=== PATIENT | female | born 1950 | race Two or more races ===

== ENCOUNTER 2021-02-27 18:16 | Inpatient (IN) | payer MEDICARE, MEDICAID ==
[~2021-02-27] VITALS: Ht 165.1 cm; Wt 77.1 kg
[2021-02-27] MEDS ORDERED: ONDANSETRON HCL 4 MG/2 ML VIAL IV ONE (18:30)
[2021-02-27] MEDS ORDERED: cefTRIAXone 1GM/50ML D5W 50 ML IV ONE ×2 (18:30→21:30)
[2021-02-27] MEDS ORDERED: SODIUM CHLORIDE 0.9% 1,000 ML IVB ONE (18:30)
[2021-02-27] MEDS ORDERED: KETOROLAC TROMETH 30 MG/ML 1ML VIAL IV ONE (18:30)
[2021-02-27 19:13] LABS: Basophils # (auto) 0 10 ^3/uL (0-0.2); Eosinophils # (auto) 0.1 10 ^3/uL (0-0.8); Monocytes # (auto) 0.2 10 ^3/uL (0-1.3); Nucleated Red Blood Cells % 0.2 %; White Blood Cell 2.9 10^3/uL (4.4-10.8)
[2021-02-27 19:15] LABS: Basophils % (auto) 0.6 % (0.0-2.0); Eosinophils % (auto) 1.9 % (0.0-7.0); Hematocrit 38.2 % (36.0-46.0); Hemoglobin 12.4 g/dL (12.2-16.2); Lymphocytes # (auto) 0.8 10 ^3/uL (0.4-5.4); Lymphocytes % (auto) 28.2 % (10.0-50.0); Mean Corpuscular Hemoglobin 35.4 pg (28.0-32.0); Mean Corpuscular Hgb Conc. 32.6 g/dL (32.0-36.0); Mean Corpuscular Volume 108.8 fL (80.0-100.0); Monocytes % (auto) 5.3 % (0.0-12.0); Neutrophils # (auto) 1.9 10 ^3/uL (1.6-8.6); Platelet Count (auto) 85 10^3/uL (140-450); Red Blood Cells 3.52 10^6/uL (4.0-5.20); Red Cell Distribution Width 19.8 % (11.8-14.3)
[2021-02-27 19:31] LABS: Albumin 3.9 g/dL (3.4-5.0); Anion Gap 6 (5-15); Blood Urea Nitrogen 15 mg/dL (7-18); Calcium 8.6 mg/dL (8.5-10.1); Carbon Dioxide 29 mmol/L (21-32); Chloride 110 mmol/L (98-107); Glucose 155 mg/dL (74-106); Lipase 246 U/L (73-393); Potassium 3.7 mmol/L (3.5-5.1); Sodium 145 mmol/L (136-145)
[2021-02-27 19:33] LABS: INR 1.11 (0.9-1.15); Partial Thromboplastin Time 26.2 sec (23.0-31.2)
[2021-02-27 19:39] LABS: Alanine Aminotransferase 46 U/L (13-56); Alkaline Phosphatase 295 U/L (45-117); Amylase 109 U/L (25-115); Aspartate Aminotransferase 53 U/L (15-37); BUN/Creatinine Ratio 19.7; Bilirubin, Total 2.4 mg/dL (0.2-1.0); GFR African American 97 mL/min; GFR Non-African American 80 mL/min; Total Protein 6.2 g/dL (6.4-8.2)
[2021-02-27] MEDS ORDERED: IOHEXOL 350 MG/ML 100ML IJ ONE (19:49)
[2021-02-27] MEDS ORDERED: SPIRONOLACTONE 25 MG TAB PO ONE (21:15)
[2021-02-27] MEDS ORDERED: FUROSEMIDE 40 MG/4 ML VIAL IV ONE (21:15)
[2021-02-27] MEDS ORDERED: AZITHROMYCIN 500MG/ 250ML 250 ML IV ONE (21:30)
[2021-02-27] MEDS ORDERED: DexAMETHasone SOD PHOS 10MG/1ML VIAL INJ IV ONE (21:30)
[2021-02-27] MEDS ORDERED: ONDANSETRON HCL 4 MG/2 ML VIAL IV PRN (23:15)
[2021-02-28] VITALS (7 sets, daily range): BP systolic 115–156; BP diastolic 54–75
[2021-02-28 08:44] LABS: Basophils # (auto) 0 10 ^3/uL (0-0.2); Basophils % (auto) 0.3 % (0.0-2.0); Eosinophils # (auto) 0 10 ^3/uL (0-0.8); Hemoglobin 12.2 g/dL (12.2-16.2); Lymphocytes # (auto) 0.5 10 ^3/uL (0.4-5.4); Monocytes # (auto) 0.1 10 ^3/uL (0-1.3); White Blood Cell 3.3 10^3/uL (4.4-10.8)
[2021-02-28 08:46] LABS: Eosinophils % (auto) 0.2 % (0.0-7.0); Hematocrit 36.9 % (36.0-46.0); Lymphocytes % (auto) 14.8 % (10.0-50.0); Mean Corpuscular Hemoglobin 35.4 pg (28.0-32.0); Mean Corpuscular Hgb Conc. 32.9 g/dL (32.0-36.0); Mean Corpuscular Volume 107.6 fL (80.0-100.0); Monocytes % (auto) 1.8 % (0.0-12.0); Neutrophils # (auto) 2.8 10 ^3/uL (1.6-8.6); Neutrophils % (auto) 82.9 % (37.0-80.0); Platelet Count (auto) 87 10^3/uL (140-450); Red Blood Cells 3.43 10^6/uL (4.0-5.20)
[2021-02-28 09:01] LABS: Albumin 3.8 g/dL (3.4-5.0); BUN/Creatinine Ratio 18.9; Calcium 8.6 mg/dL (8.5-10.1); Potassium 4.4 mmol/L (3.5-5.1)
[2021-02-28 09:10] LABS: Bilirubin, Total 1.8 mg/dL (0.2-1.0); Total Protein 6.3 g/dL (6.4-8.2)
[2021-02-28] MEDS: FAMOTIDINE 20 MG TAB PO SCH ×2 (09:36→22:02)
[2021-02-28] MEDS: SPIRONOLACTONE 25 MG TAB PO SCH (09:36)
[2021-02-28] MEDS ORDERED: cefTRIAXone 1GM/50ML D5W 50 ML IV ONE (10:45)
[2021-02-28] MEDS: LACTULOSE 20Gm/30ML SOLN PO SCH ×4 (13:36→22:02)
[2021-02-28] MEDS: AZITHROMYCIN 500MG/ 250ML 250 ML IV SCH (22:01)
[2021-02-28] MEDS: rifAXIMin 550 MG TAB PO SCH (22:02)
[2021-03-01] MEDS: LACTULOSE 20Gm/30ML SOLN PO SCH ×6 (02:00→21:08)
[2021-03-01 05:12] VITALS: BP 119/57
[2021-03-01 07:35] LABS: % Iron Saturation 20.4 % (15-50)
[2021-03-01 08:45] VITALS: BP 113/57
[2021-03-01] MEDS: cefTRIAXone 1GM/50ML D5W 50 ML IV SCH (10:42)
[2021-03-01] MEDS: FUROSEMIDE 40 MG/4 ML VIAL IV SCH (10:42)
[2021-03-01] MEDS: FAMOTIDINE 20 MG TAB PO SCH ×2 (10:43→21:08)
[2021-03-01] MEDS: SPIRONOLACTONE 25 MG TAB PO SCH (10:43)
[2021-03-01] MEDS: rifAXIMin 550 MG TAB PO SCH ×2 (10:43→21:08)
[2021-03-01 13:00] VITALS: BP_SYST 121; BP_SYST 134; BP_DIAS 52; BP_DIAS 67
[2021-03-01] MEDS: traMADol HCL 50 MG TAB PO PRN (16:32)
[2021-03-01 17:00] VITALS: BP 106/51
[2021-03-01] MEDS ORDERED: ALEN70TA74 PO (18:52)
[2021-03-01] MEDS: AZITHROMYCIN 500MG/ 250ML 250 ML IV SCH (21:07)
[2021-03-01] MEDS: ALBUTEROL SULF 2.5 MG/0.5ML(0.5%) NEB SOLN NEB PRN (22:19)
[2021-03-01 22:48] VITALS: BP 119/73
[2021-03-02] MEDS: LACTULOSE 20Gm/30ML SOLN PO SCH ×6 (02:00→20:40)
[2021-03-02 05:21] VITALS: BP 122/28
[2021-03-02 06:18] LABS: Potassium 4.6 mmol/L (3.5-5.1)
[2021-03-02 06:26] LABS: Albumin 3.8 g/dL (3.4-5.0); BUN/Creatinine Ratio 26.7; Bilirubin, Total 1.7 mg/dL (0.2-1.0); Calcium 8.3 mg/dL (8.5-10.1); Total Protein 5.9 g/dL (6.4-8.2)
[2021-03-02] MEDS: cefTRIAXone 1GM/50ML D5W 50 ML IV SCH (08:21)
[2021-03-02] MEDS: traMADol HCL 50 MG TAB PO PRN (08:22)
[2021-03-02 09:00] VITALS: BP 127/50
[2021-03-02] MEDS: ALBUTEROL SULF 2.5 MG/0.5ML(0.5%) NEB SOLN NEB PRN (09:22)
[2021-03-02] MEDS: SPIRONOLACTONE 25 MG TAB PO SCH (09:23)
[2021-03-02] MEDS: rifAXIMin 550 MG TAB PO SCH ×2 (09:23→20:43)
[2021-03-02] MEDS: FAMOTIDINE 20 MG TAB PO SCH ×2 (09:23→20:41)
[2021-03-02] MEDS: FUROSEMIDE 40 MG/4 ML VIAL IV SCH (09:23)
[2021-03-02 11:16] LABS: Hepatitis B Surface Antibody Negative
[2021-03-02 11:52] LABS: Hepatitis A Total Antibody Positive
[2021-03-02 12:17] LABS: Hepatitis B Core Total AB Negative; Hepatitis B Surface Antigen Negative (Negative); Hepatitis C Antibody Negative (Negative)
[2021-03-02 12:50] VITALS: BP 110/51
[2021-03-02 16:48] VITALS: BP 127/46
[2021-03-02] MEDS: AZITHROMYCIN 500MG/ 250ML 250 ML IV SCH (20:40)
[2021-03-02 22:00] VITALS: BP 140/66
[2021-03-03 01:21] VITALS: BP 140/66
[2021-03-03] MEDS: LACTULOSE 20Gm/30ML SOLN PO SCH ×6 (02:00→21:01)
[2021-03-03 05:00] VITALS: BP 123/62
[2021-03-03] MEDS ORDERED: LEVO50TA7 PO (07:26)
[2021-03-03 09:00] VITALS: BP 126/72
[2021-03-03] MEDS: cefTRIAXone 1GM/50ML D5W 50 ML IV SCH (09:11)
[2021-03-03] MEDS: FAMOTIDINE 20 MG TAB PO SCH ×2 (09:11→21:02)
[2021-03-03] MEDS: rifAXIMin 550 MG TAB PO SCH ×2 (09:11→21:05)
[2021-03-03] MEDS: FUROSEMIDE 20 MG TAB PO SCH (09:12)
[2021-03-03] MEDS: SPIRONOLACTONE 25 MG TAB PO SCH (09:12)
[2021-03-03] MEDS: traMADol HCL 50 MG TAB PO PRN (09:12)
[2021-03-03 13:00] VITALS: BP 132/73
[2021-03-03 17:00] VITALS: BP 140/60
[2021-03-03] MEDS: AZITHROMYCIN 500MG/ 250ML 250 ML IV SCH (21:00)
[2021-03-03 22:00] VITALS: BP 125/58
[2021-03-04] MEDS: LACTULOSE 20Gm/30ML SOLN PO SCH ×3 (02:00→08:53)
[2021-03-04 05:00] VITALS: BP 131/45
[2021-03-04] MEDS: cefTRIAXone 1GM/50ML D5W 50 ML IV SCH (08:52)
[2021-03-04] MEDS: rifAXIMin 550 MG TAB PO SCH (08:53)
[2021-03-04] MEDS: FUROSEMIDE 20 MG TAB PO SCH (08:53)
[2021-03-04] MEDS: FAMOTIDINE 20 MG TAB PO SCH (08:54)
[2021-03-04] MEDS: SPIRONOLACTONE 25 MG TAB PO SCH (08:54)
[2021-03-04 09:00] VITALS: BP 135/62
[2021-03-04 11:21] VITALS: BP 135/62
== END 2021-03-04 13:00 | disposition home health service (06) | DRG 871 ==
LOC: ER 18:16 → TELE 23:08 → WEST WING 02-28 03:51
PROVIDERS: ADMIT Nurse Practitioner; ATTEND Family Medicine
DX: A41.9 Sepsis, unspecified organism (principal); J18.9 Pneumonia, unspecified organism; J96.01 Acute respiratory failure with hypoxia; D61.818 Other pancytopenia; R18.8 Other ascites; K76.6 Portal hypertension; J98.11 Atelectasis; J90 Pleural effusion, not elsewhere classified; E72.20 Disorder of urea cycle metabolism, unspecified; K74.60 Unspecified cirrhosis of liver; R16.1 Splenomegaly, not elsewhere classified; K76.0 Fatty (change of) liver, not elsewhere classified; Z20.822 Contact with and (suspected) exposure to COVID-19; K57.30 Diverticulosis of large intestine without perforation or abscess without bleeding; Z79.899 Other long term (current) drug therapy; Z86.19 Personal history of other infectious and parasitic diseases
CPT/HCPCS: 36415; 36600; 71045; 71260; 74177; 76604; 76700; 80053; 80320; 82140; 82150; 82728; 82805; 83540; 83550; 83605; 83690; 84484; 85025; 85610; 85730; 86038; 86141; 86704; 86706; 86708; 86803; 86850; 86900; 86901; 87040; 87340; 87426; 93005; 94640; 96365; 96367; 96375; 99291; G0378; J0696; J1100; J1885; J2405

== ENCOUNTER 2021-04-12 07:28 | Inpatient (IN) | payer MEDICARE, MEDICAID ==
[~2021-04-12] VITALS: Ht 160 cm; Wt 70.9 kg
[~2021-04-12 07:28] MED LIST: ALEN70TA74 PO; LEVO50TA7 PO
[2021-04-12 08:11] LABS: Basophils # (auto) 0 10 ^3/uL (0-0.2); Eosinophils # (auto) 0.1 10 ^3/uL (0-0.8); Hemoglobin 11.1 g/dL (12.2-16.2); Lymphocytes # (auto) 1.2 10 ^3/uL (0.4-5.4); Monocytes # (auto) 0.1 10 ^3/uL (0-1.3); Nucleated Red Blood Cells % 0.2 %; Red Blood Cells 3.02 10^6/uL (4.0-5.20)
[2021-04-12 08:13] LABS: Basophils % (auto) 0.8 % (0.0-2.0); Lymphocytes % (auto) 41.1 % (10.0-50.0); Mean Corpuscular Hemoglobin 36.7 pg (28.0-32.0); Mean Corpuscular Hgb Conc. 33.7 g/dL (32.0-36.0); Monocytes % (auto) 3.6 % (0.0-12.0); Neutrophils # (auto) 1.4 10 ^3/uL (1.6-8.6); Neutrophils % (auto) 49.5 % (37.0-80.0); Red Cell Distribution Width 18.9 % (11.8-14.3); White Blood Cell 2.9 10^3/uL (4.4-10.8)
[2021-04-12] MEDS ORDERED: FAMO20TA10 PO (08:24)
[2021-04-12 08:29] LABS: Albumin 3.3 g/dL (3.4-5.0); Anion Gap 5 (5-15); Blood Urea Nitrogen 14 mg/dL (7-18); Calcium 8.4 mg/dL (8.5-10.1); Carbon Dioxide 30 mmol/L (21-32); Chloride 112 mmol/L (98-107); Glucose 94 mg/dL (74-106); Potassium 3.7 mmol/L (3.5-5.1); Sodium 147 mmol/L (136-145)
[2021-04-12 08:32] LABS: Alanine Aminotransferase 107 U/L (13-56); Aspartate Aminotransferase 136 U/L (15-37); BUN/Creatinine Ratio 22.2; GFR African American 120 mL/min; GFR Non-African American 99 mL/min
[2021-04-12 08:36] LABS: Alkaline Phosphatase 581 U/L (45-117); Bilirubin, Total 1.5 mg/dL (0.2-1.0); Total Protein 5.8 g/dL (6.4-8.2)
[2021-04-12 11:51] LABS: Urine Bacteria FEW /hpf (None Seen); Urine Blood Negative /uL (Negative); Urine Hyaline Cast FEW /lpf (0 - 2); Urine Specific Gravity 1.029 (1.001-1.035); Urine WBC 5 /hpf (0 - 5)
[2021-04-12 12:10] LABS: INR 1.08 (0.9-1.15); Partial Thromboplastin Time 28.6 sec (23.0-31.2)
[2021-04-12] MEDS ORDERED: ONDANSETRON HCL 4 MG/2 ML VIAL IV ONE (14:30)
[2021-04-12] MEDS ORDERED: MORPHINE SULFATE INJECTION 2 MG/ML SYRG IV ONE (14:30)
[2021-04-12] MEDS ORDERED: ALBUTEROL SULF 2.5 MG/0.5ML(0.5%) NEB SOLN NEB PRN (14:45)
[2021-04-12] MEDS ORDERED: NITROGLYCERIN 0.4 MG SL TAB SL PRN (14:45)
[2021-04-12] MEDS ORDERED: LACTULOSE 20Gm/30ML SOLN PO PRN (14:45)
[2021-04-12] MEDS ORDERED: ONDANSETRON HCL 4 MG/2 ML VIAL IV PRN (14:45)
[2021-04-12] MEDS ORDERED: SPIRONOLACTONE 25 MG TAB PO ONE (14:45)
[2021-04-12] MEDS ORDERED: MORPHINE SULFATE INJECTION 2 MG/ML SYRG IV PRN (14:45)
[2021-04-12 15:09] VITALS: BP 149/72
[2021-04-12] MEDS ORDERED: hydrALAZINE HCL 20 MG/ML VL IV PRN (15:15)
[2021-04-12] MEDS ORDERED: cefTRIAXone 1GM/50ML D5W 50 ML IV ONE (15:15)
[2021-04-12 15:24] LABS: Amylase 71 U/L (25-115); Lipase 128 U/L (73-393)
[2021-04-12] MEDS: FUROSEMIDE 40 MG/4 ML VIAL IV SCH (20:28)
[2021-04-12] MEDS: MORPHINE SULFATE INJECTION 2 MG/ML SYRG IV PRN ×2 (20:34→22:46)
[2021-04-12] MEDS ORDERED: CARVEDILOL 3.125 MG TAB PO SCH (22:00)
[2021-04-12] MEDS: SODIUM CHLOR 0.9% PF (SALINE LOCK) 10ML VIAL/SYR IV SCH (22:46)
[2021-04-12] MEDS: FAMOTIDINE 20 MG TAB PO SCH (22:46)
[2021-04-12 22:55] VITALS: BP 156/73
[2021-04-12] MEDS ORDERED: AMLO-496 PO (23:13)
[2021-04-13] VITALS (16 sets, daily range): BP systolic 98–140; BP diastolic 35–69
[2021-04-13] MEDS: MORPHINE SULFATE INJECTION 2 MG/ML SYRG IV PRN ×2 (04:02→20:53)
[2021-04-13] MEDS: SODIUM CHLOR 0.9% PF (SALINE LOCK) 10ML VIAL/SYR IV SCH ×3 (05:53→21:51)
[2021-04-13] MEDS: FUROSEMIDE 40 MG/4 ML VIAL IV SCH ×2 (05:53→18:00)
[2021-04-13 06:02] LABS: Albumin 3.4 g/dL (3.4-5.0); Anion Gap 4 (5-15); Blood Urea Nitrogen 14 mg/dL (7-18); Calcium 8.4 mg/dL (8.5-10.1); Carbon Dioxide 30 mmol/L (21-32); Chloride 111 mmol/L (98-107); Glucose 99 mg/dL (74-106); Sodium 145 mmol/L (136-145)
[2021-04-13 06:05] LABS: Basophils # (auto) 0 10 ^3/uL (0-0.2); Basophils % (auto) 0.5 % (0.0-2.0); Eosinophils # (auto) 0.1 10 ^3/uL (0-0.8); Eosinophils % (auto) 3.4 % (0.0-7.0); Hemoglobin 12.1 g/dL (12.2-16.2); Lymphocytes # (auto) 1.4 10 ^3/uL (0.4-5.4); Lymphocytes % (auto) 37.6 % (10.0-50.0); Mean Corpuscular Hemoglobin 37.6 pg (28.0-32.0); Mean Corpuscular Hgb Conc. 34.5 g/dL (32.0-36.0); Monocytes # (auto) 0.1 10 ^3/uL (0-1.3); Monocytes % (auto) 3.9 % (0.0-12.0); Neutrophils % (auto) 54.6 % (37.0-80.0); Nucleated Red Blood Cells % 0.2 %; Red Blood Cells 3.21 10^6/uL (4.0-5.20); Red Cell Distribution Width 18.6 % (11.8-14.3); White Blood Cell 3.7 10^3/uL (4.4-10.8)
[2021-04-13 06:09] LABS: Alanine Aminotransferase 98 U/L (13-56); Alkaline Phosphatase 592 U/L (45-117); Aspartate Aminotransferase 111 U/L (15-37); BUN/Creatinine Ratio 24.1; Bilirubin, Total 1.4 mg/dL (0.2-1.0); Cholesterol 221 mg/dL (< 200); GFR African American 132 mL/min; GFR Non-African American 109 mL/min; HDL Cholesterol 58 mg/dL (40-59); LDL Cholesterol 136 mg/dL (< 100); Triglycerides 119 mg/dL (< 150)
[2021-04-13] MEDS: cefTRIAXone 1GM/50ML D5W 50 ML IV SCH (09:24)
[2021-04-13] MEDS: SPIRONOLACTONE 25 MG TAB PO SCH (09:25)
[2021-04-13] MEDS: amLODIPine BESYLATE 5 MG TAB PO SCH ×2 (09:25→09:58)
[2021-04-13] MEDS: FAMOTIDINE 20 MG TAB PO SCH (09:26)
[2021-04-13] MEDS: ENALAPRIL MALEATE 2.5 MG TAB PO SCH ×2 (09:26→09:58)
[2021-04-13] MEDS: NITROGLYCERIN 0.2MG/HR TOPICAL PATCH TD SCH (09:58)
[2021-04-13] MEDS ORDERED: FAMOTIDINE 20 MG TAB PO SCH (22:00)
[2021-04-14] VITALS (24 sets, daily range): BP systolic 90–132; BP diastolic 24–53
[2021-04-14] MEDS: MORPHINE SULFATE INJECTION 2 MG/ML SYRG IV PRN (03:50)
[2021-04-14 04:37] LABS: Basophils # (auto) 0 10 ^3/uL (0-0.2); Eosinophils # (auto) 0.1 10 ^3/uL (0-0.8); Monocytes # (auto) 0.1 10 ^3/uL (0-1.3); White Blood Cell 2.9 10^3/uL (4.4-10.8)
[2021-04-14 04:40] LABS: Basophils % (auto) 0.4 % (0.0-2.0); Eosinophils % (auto) 3.9 % (0.0-7.0); Hematocrit 29.2 % (36.0-46.0); Hemoglobin 10.2 g/dL (12.2-16.2); Lymphocytes # (auto) 0.9 10 ^3/uL (0.4-5.4); Mean Corpuscular Hemoglobin 38.1 pg (28.0-32.0); Mean Corpuscular Hgb Conc. 34.9 g/dL (32.0-36.0); Mean Corpuscular Volume 109.2 fL (80.0-100.0); Monocytes % (auto) 3.4 % (0.0-12.0); Neutrophils # (auto) 1.8 10 ^3/uL (1.6-8.6); Neutrophils % (auto) 62.3 % (37.0-80.0); Nucleated Red Blood Cells % 0.3 %; Red Blood Cells 2.67 10^6/uL (4.0-5.20); Red Cell Distribution Width 18.1 % (11.8-14.3)
[2021-04-14 05:18] LABS: Albumin 3.2 g/dL (3.4-5.0); Calcium 8.3 mg/dL (8.5-10.1); Potassium 4.6 mmol/L (3.5-5.1)
[2021-04-14 05:22] LABS: BUN/Creatinine Ratio 19.5; Bilirubin, Total 1.3 mg/dL (0.2-1.0); Total Protein 5.4 g/dL (6.4-8.2)
[2021-04-14] MEDS: FUROSEMIDE 40 MG/4 ML VIAL IV SCH ×2 (06:16→17:51)
[2021-04-14] MEDS: SODIUM CHLOR 0.9% PF (SALINE LOCK) 10ML VIAL/SYR IV SCH ×3 (06:17→22:23)
[2021-04-14] MEDS: LEVOTHYROXINE SODIUM 50 MCG TAB PO SCH (06:21)
[2021-04-14] MEDS ORDERED: LEVOTHYROXINE SODIUM 50 MCG TAB PO SCH (07:00)
[2021-04-14] MEDS: cefTRIAXone 1GM/50ML D5W 50 ML IV SCH (09:55)
[2021-04-14] MEDS: LACTULOSE 20Gm/30ML SOLN PO SCH ×4 (09:55→22:23)
[2021-04-14] MEDS: SPIRONOLACTONE 25 MG TAB PO SCH (09:55)
[2021-04-14] MEDS: FAMOTIDINE 20 MG TAB PO SCH (09:55)
[2021-04-14] MEDS: ENALAPRIL MALEATE 2.5 MG TAB PO SCH (09:55)
[2021-04-14] MEDS: amLODIPine BESYLATE 5 MG TAB PO SCH (09:55)
[2021-04-14] MEDS: NITROGLYCERIN 0.2MG/HR TOPICAL PATCH TD SCH (09:56)
[2021-04-14] MEDS ORDERED: ALBUMIN 5% 250 ML IV ONE (11:30)
[2021-04-14] MEDS ORDERED: FUROSEMIDE 20 MG/2 ML VIAL IV ONE (12:30)
[2021-04-14] MEDS: HYDROcodone-ACET 7.5/325MG TAB PO PRN (17:45)
[2021-04-15] VITALS (21 sets, daily range): BP systolic 95–129; BP diastolic 36–53
[2021-04-15] MEDS: LACTULOSE 20Gm/30ML SOLN PO SCH ×6 (02:14→21:59)
[2021-04-15] MEDS: SODIUM CHLOR 0.9% PF (SALINE LOCK) 10ML VIAL/SYR IV SCH ×3 (06:00→21:59)
[2021-04-15 06:27] LABS: Basophils # (auto) 0 10 ^3/uL (0-0.2); Basophils % (auto) 0.7 % (0.0-2.0); Eosinophils # (auto) 0.1 10 ^3/uL (0-0.8); Eosinophils % (auto) 3.3 % (0.0-7.0); Hematocrit 28.6 % (36.0-46.0); Lymphocytes # (auto) 0.8 10 ^3/uL (0.4-5.4); Lymphocytes % (auto) 30.7 % (10.0-50.0); Mean Corpuscular Hemoglobin 37.7 pg (28.0-32.0); Mean Corpuscular Hgb Conc. 34.9 g/dL (32.0-36.0); Mean Corpuscular Volume 107.9 fL (80.0-100.0); Monocytes # (auto) 0.1 10 ^3/uL (0-1.3); Neutrophils # (auto) 1.7 10 ^3/uL (1.6-8.6); Neutrophils % (auto) 62.3 % (37.0-80.0); Nucleated Red Blood Cells % 0.1 %; Red Blood Cells 2.65 10^6/uL (4.0-5.20); Red Cell Distribution Width 18.2 % (11.8-14.3); White Blood Cell 2.8 10^3/uL (4.4-10.8)
[2021-04-15] MEDS: LEVOTHYROXINE SODIUM 50 MCG TAB PO SCH (06:29)
[2021-04-15] MEDS: FUROSEMIDE 40 MG/4 ML VIAL IV SCH ×2 (06:30→17:55)
[2021-04-15 06:43] LABS: Potassium 3.9 mmol/L (3.5-5.1)
[2021-04-15 06:54] LABS: Albumin 3.3 g/dL (3.4-5.0); BUN/Creatinine Ratio 18.8; Bilirubin, Total 2.3 mg/dL (0.2-1.0); Calcium 8.5 mg/dL (8.5-10.1); Total Protein 5.5 g/dL (6.4-8.2)
[2021-04-15] MEDS: cefTRIAXone 1GM/50ML D5W 50 ML IV SCH (08:53)
[2021-04-15] MEDS: amLODIPine BESYLATE 5 MG TAB PO SCH (10:00)
[2021-04-15] MEDS: ENALAPRIL MALEATE 2.5 MG TAB PO SCH (10:00)
[2021-04-15] MEDS: NITROGLYCERIN 0.2MG/HR TOPICAL PATCH TD SCH (10:00)
[2021-04-15] MEDS: FAMOTIDINE 20 MG TAB PO SCH (10:17)
[2021-04-15] MEDS: SPIRONOLACTONE 25 MG TAB PO SCH (10:17)
[2021-04-15] MEDS: HYDROcodone-ACET 7.5/325MG TAB PO PRN (13:49)
[2021-04-15] MEDS ORDERED: AZITHROMYCIN 500MG/ 250ML 250 ML IV ONE (15:00)
[2021-04-16] VITALS (22 sets, daily range): BP systolic 93–149; BP diastolic 28–65
[2021-04-16] MEDS: LACTULOSE 20Gm/30ML SOLN PO SCH ×6 (01:27→21:55)
[2021-04-16] MEDS: FUROSEMIDE 40 MG/4 ML VIAL IV SCH ×2 (05:35→17:01)
[2021-04-16] MEDS: SODIUM CHLOR 0.9% PF (SALINE LOCK) 10ML VIAL/SYR IV SCH ×3 (05:35→21:55)
[2021-04-16 06:15] LABS: Basophils # (auto) 0 10 ^3/uL (0-0.2); Eosinophils # (auto) 0.1 10 ^3/uL (0-0.8); Lymphocytes # (auto) 0.6 10 ^3/uL (0.4-5.4); Monocytes # (auto) 0.1 10 ^3/uL (0-1.3); Neutrophils # (auto) 1.9 10 ^3/uL (1.6-8.6); Nucleated Red Blood Cells % 0.1 %; White Blood Cell 2.7 10^3/uL (4.4-10.8)
[2021-04-16 06:18] LABS: Basophils % (auto) 0.5 % (0.0-2.0); Eosinophils % (auto) 5.4 % (0.0-7.0); Hematocrit 30.6 % (36.0-46.0); Hemoglobin 10.8 g/dL (12.2-16.2); Lymphocytes % (auto) 21.4 % (10.0-50.0); Mean Corpuscular Hemoglobin 37.9 pg (28.0-32.0); Mean Corpuscular Hgb Conc. 35.4 g/dL (32.0-36.0); Mean Corpuscular Volume 107.2 fL (80.0-100.0); Monocytes % (auto) 3.3 % (0.0-12.0); Neutrophils % (auto) 69.4 % (37.0-80.0); Red Blood Cells 2.85 10^6/uL (4.0-5.20); Red Cell Distribution Width 18.3 % (11.8-14.3)
[2021-04-16] MEDS: LEVOTHYROXINE SODIUM 50 MCG TAB PO SCH (06:29)
[2021-04-16 06:35] LABS: Albumin 3.1 g/dL (3.4-5.0); Calcium 8.6 mg/dL (8.5-10.1); Potassium 3.5 mmol/L (3.5-5.1)
[2021-04-16 06:38] LABS: BUN/Creatinine Ratio 18.6
[2021-04-16 06:41] LABS: Bilirubin, Total 1.8 mg/dL (0.2-1.0); Total Protein 5.6 g/dL (6.4-8.2)
[2021-04-16] MEDS: cefTRIAXone 1GM/50ML D5W 50 ML IV SCH (08:39)
[2021-04-16] MEDS: amLODIPine BESYLATE 5 MG TAB PO SCH (10:00)
[2021-04-16] MEDS: NITROGLYCERIN 0.2MG/HR TOPICAL PATCH TD SCH (10:00)
[2021-04-16] MEDS: ENALAPRIL MALEATE 2.5 MG TAB PO SCH (10:00)
[2021-04-16] MEDS: AZITHROMYCIN 500MG/ 250ML 250 ML IV SCH (11:12)
[2021-04-16] MEDS: SPIRONOLACTONE 25 MG TAB PO SCH (11:12)
[2021-04-16] MEDS: FAMOTIDINE 20 MG TAB PO SCH (11:13)
[2021-04-16] MEDS ORDERED: FUROSEMIDE 40 MG/4 ML VIAL IV ONE (15:45)
[2021-04-16] MEDS ORDERED: AMIODARONE 450mg/250ml AE 250 ML IV SCH ×2 (16:45→22:45)
[2021-04-16] MEDS ORDERED: AMIODARONE HCL 150 MG in D5W 5% 100 ML IV ONE (16:45)
[2021-04-16] MEDS ORDERED: POTASSIUM CHLORIDE 40 MEQ, LIDOCAINE 1% (LOCAL ANESTH.) 4 ML in SODIUM CHL 0.9% 250 ML IV ONE (16:45)
[2021-04-16] MEDS ORDERED: MAGNESIUM SULFATE 1GM/100ML 100 ML IV ONE (16:45)
[2021-04-17] VITALS (32 sets, daily range): BP systolic 88–124; BP diastolic 30–55
[2021-04-17] MEDS: LACTULOSE 20Gm/30ML SOLN PO SCH ×4 (02:00→14:00)
[2021-04-17] MEDS: FUROSEMIDE 40 MG/4 ML VIAL IV SCH (05:32)
[2021-04-17] MEDS: SODIUM CHLOR 0.9% PF (SALINE LOCK) 10ML VIAL/SYR IV SCH ×2 (05:33→14:00)
[2021-04-17] MEDS: LEVOTHYROXINE SODIUM 50 MCG TAB PO SCH (07:17)
[2021-04-17] MEDS: cefTRIAXone 1GM/50ML D5W 50 ML IV SCH (09:00)
[2021-04-17] MEDS: FAMOTIDINE 20 MG TAB PO SCH (09:38)
[2021-04-17] MEDS: AZITHROMYCIN 500MG/ 250ML 250 ML IV SCH (09:38)
[2021-04-17] MEDS: SPIRONOLACTONE 25 MG TAB PO SCH (09:41)
[2021-04-17] MEDS: amLODIPine BESYLATE 5 MG TAB PO SCH (09:41)
[2021-04-17] MEDS: ENALAPRIL MALEATE 2.5 MG TAB PO SCH (09:41)
[2021-04-17] MEDS: NITROGLYCERIN 0.2MG/HR TOPICAL PATCH TD SCH ×2 (09:41→10:26)
[2021-04-17] MEDS: HYDROcodone-ACET 7.5/325MG TAB PO PRN (10:46)
[2021-04-18] MEDS ORDERED: AZITHROMYCIN 250 MG TAB PO SCH (10:00)
== END 2021-04-17 19:40 | disposition hospice, home (50) | DRG 183 ==
LOC: ER 07:28 → TELE 14:43 → ICU WEST 21:56 → TELE-WESTW 22:06 → ICU WEST 04-13 10:34 → TELE-CENTR 04-15 18:19 → ICU WEST 04-16 18:08
PROVIDERS: ADMIT Internal Medicine; ATTEND Internal Medicine
DX: S22.43XA Multiple fractures of ribs, bilateral, initial encounter for closed fracture (principal); I50.43 Acute on chronic combined systolic (congestive) and diastolic (congestive) heart failure; J96.21 Acute and chronic respiratory failure with hypoxia; R18.8 Other ascites; N39.0 Urinary tract infection, site not specified; I47.1 Supraventricular tachycardia; I47.2 Ventricular tachycardia; J91.8 Pleural effusion in other conditions classified elsewhere; D61.818 Other pancytopenia; D69.6 Thrombocytopenia, unspecified; K74.60 Unspecified cirrhosis of liver; I07.1 Rheumatic tricuspid insufficiency; I48.91 Unspecified atrial fibrillation; J44.9 Chronic obstructive pulmonary disease, unspecified; Z51.5 Encounter for palliative care; Z20.822 Contact with and (suspected) exposure to COVID-19; Z66 Do not resuscitate; I25.10 Atherosclerotic heart disease of native coronary artery without angina pectoris; E03.9 Hypothyroidism, unspecified; I11.0 Hypertensive heart disease with heart failure; D50.9 Iron deficiency anemia, unspecified; E66.3 Overweight; Z68.27 Body mass index [BMI] 27.0-27.9, adult; I16.0 Hypertensive urgency; W06.XXXA Fall from bed, initial encounter; Y93.89 Activity, other specified; Y92.89 Other specified places as the place of occurrence of the external cause; Y99.8 Other external cause status
CPT/HCPCS: 36415; 36600; 70450; 71045; 71250; 76604; 80053; 80061; 81001; 82140; 82150; 82378; 82550; 82805; 82962; 83605; 83690; 83735; 83880; 84439; 84443; 84484; 85025; 85049; 85610; 85730; 87040; 87081; 87086; 87426; 93005; 93306; 94003; 94660; 96365; 96375; G0378; J0696; J2001; J2405; J7060